=== PATIENT | female | born 1940 | race Caucasian/White ===

== ENCOUNTER 2017-03-08 18:36 | Emergency (ER) | payer MEDICARE ==
[2017-03-08 19:14] VITALS: BP 149/71
--- NOTE | 2017-03-08 20:04 | RAD ---
INDICATION: Left wrist pain after trauma COMPARISON: Similar radiograph dated June 13, 2016 TECHNIQUE: 3 views left wrist. REPORT: There is a minimally displaced and impacted fracture of the distal left radius. There is a nondisplaced fracture at the left ulnar styloid. There is widening of the scapholunate joint measuring 4 mm that was not seen on the previous radiograph. There is also a lucent line at the waist of the scaphoid potentially representing a nondisplaced fracture. Remaining visualized bones are intact. IMPRESSION: 1. Impacted fracture of the distal left radius and nondisplaced fracture of the left ulnar styloid. 2. Potential nondisplaced fracture through the waist of the scaphoid. 3. Widening of the scapholunate joint space indicates rupture of the scapholunate ligament.
--- NOTE | 2017-03-08 22:38 | UC ---
Rhona Kevin Alfonso, scribed for Matteo Youssef MD on 03/08/17 at 1949 . Head Injury HPI - HPI Summary HPI Summary: This patient is a 76 year old F presenting to [facility] accompanied by family with a chief complaint of a left wrist injury which occurred two hours EDITOR. She reports slipping down 3 steps. Pt rates the throbbing pain 8/10 in severity. Symptoms aggravated and alleviated by nothing. Pt took Advil EDITOR. Pt denies neck pain and head trauma. Pt medications reviewed this visit. - History Of Current Complaint Chief Complaint: UCTrauma Stated Complaint: WRIST INJURY Time Seen by Provider: 03/08/17 19:33 Hx Obtained From: Patient Mechanism Of Injury: Fall Onset/Duration: Sudden Onset, Lasting Hours - 2, Still Present Severity Currently: Moderate Severity Initially: Moderate Pain Intensity: 8 Pain Scale Used: 0-10 Numeric Character: Throbbing Aggravating Factor(s): Nothing Alleviating Factor(s): Nothing Associated Signs And Symptoms: Positive: Other - Negative head trauma. Negative : Neck Pain - Allergies/Home Medications Allergies/Adverse Reactions: Allergies Allergy/AdvReac Type Severity Reaction Status Date / Time Doxycycline Allergy Unknown Verified 03/08/17 19:08 Reaction Details Erythromycin Allergy Unknown Verified 03/08/17 19:08 Reaction Details Fluoxetine [From Prozac] Allergy Unknown Verified 03/08/17 19:08 Reaction Details Sertraline [From Zoloft] Allergy Unknown Verified 03/08/17 19:08 Reaction Details Sulfa Antibiotics Allergy Unknown Verified 03/08/17 19:07 Reaction Details PENLAC Allergy Intermediate Itching Uncoded 03/08/17 19:07 PMH/Surg Hx/FS Hx/Imm Hx - Surgical History Surgical History: Yes Surgery Procedure, Year, and Place: 2000 ORIF LEFT HIP [facility]-REMOVED SCREW SEVERAL YEARS LATER. 2007 BILATERAL CATARACTS [place]. Tonsilectomy - Family History Known Family History: Negative: Other - JOINT LAXITY - Social History Alcohol Use: None Alcohol Amount: 1-2 DRINKS/WEEK Substance Use Type: None Smoking Status (MU): Never Smoked Tobacco Have You Smoked in the Last Year: No Review of Systems Constitutional: Other - Negative fever Musculoskeletal: Other: - Positive Left wrist pain; negative neck pain Neurological: Other - Negative head trauma All Other Systems Reviewed And Are Negative: Yes Physical Exam Triage Information Reviewed: Yes Appearance: Well-Appearing, No Pain Distress Vital Signs: Initial Vital Signs Temp 99.8 F 03/08/17 19:08 Pulse 61 03/08/17 19:08 Resp 16 03/08/17 19:08 BP 149/71 03/08/17 19:08 Pulse Ox 98 03/08/17 19:08 Vital Signs Reviewed: Yes Eyes: Positive: Other: - EOMI, ELDER ENT: Positive: Normal ENT inspection Neck: Positive: Supple, Nontender Respiratory: Positive: Chest non-tender, Lungs clear Cardiovascular: Positive: RRR Abdomen Description: Positive: Nontender, Soft Bowel Sounds: Positive: Present Musculoskeletal: Positive: Other: - Swelling in left wrist. Tender to palpation. Good capillary refills and pulse. Neurological: Positive: Alert Psychological: Positive: Age Appropriate Behavior Skin Exam: Normal Procedures - Splinting Location: Left wrist Hand-Made Type: fiberglass Splint: thumb spica Diagnostics - Radiology Wrist X-Ray Radiology Interpretation Completed By: Radiologist - Pending Head Injury Course/Dx - Course Course Of Treatment: PLACED IN THUMB SPICA SPLINT. DISCUSSED WITH DR RAMIREZ. PATIENT TO F/U WITH HIM ON 03/12/17. - Differential Dx/Diagnosis Provider Diagnoses: LEFT WRIST AND SCAPHOID FRACTURE - Physician Notification/Consults Discussed Patient Care With: Kervin Ramirez Time Discussed With Above Provider: 19:44 Instructed by Provider To: Other - Consulted Dr. Ramirez (orthopedics) who recommended applying a splint and having pt follow up at their office. Consulted Dr. Ramirez (orthopedics) again at 2004 who said to call back on Saturday to have the patient schedule a follow up for Saturday. Discharge - Discharge Plan Condition: Stable Disposition: HOME Patient Education Materials: Wrist Fracture in Adults (ED), Splint Care (ED), Scaphoid Fracture (ED) Referrals: [facility] [Outside] Radha Cordon MD [Primary Care Provider] - Kervin Ramirez MD [Medical Doctor] - Additional Instructions: FOLLOW UP WITH ORTHOPEDICS, DR RAMIREZ. CALL HIS OFFICE 03/11/17, TO ARRANGE FOR AN APPOINTMENT WITH HIM ON 03/12/17. RETURN TO THE EMERGENCY DEPARTMENT FOR ANY WORSENING OF YOUR CONDITION OR QUESTIONS OR CONCERNS. The documentation as recorded by the Rhona recinos Alfonso accurately reflects the service I personally performed and the decisions made by me, Matteo Youssef MD.
== END 2017-03-08 20:51 | disposition home or self-care (01) ==
LOC: UCEAST 18:36
DX: S52.502A Unspecified fracture of the lower end of left radius, initial encounter for closed fracture (principal); S52.612A Displaced fracture of left ulna styloid process, initial encounter for closed fracture; S62.002A Unspecified fracture of navicular [scaphoid] bone of left wrist, initial encounter for closed fracture; W10.9XXA Fall (on) (from) unspecified stairs and steps, initial encounter; Y93.9 Activity, unspecified; Y92.9 Unspecified place or not applicable; Y99.9 Unspecified external cause status
CPT/HCPCS: 99212; G0463

== ENCOUNTER 2017-03-18 10:45 | Day surgery (SDC) | payer MEDICARE ==
[~2017-03-18 10:45] MED LIST: Buffered Lidocaine 0.9% SYRIN* 5 ML/SYR SYRINGE INTRADERM ONE; Buffered Lidocaine 0.9% SYRIN* 5 ML/SYR SYRINGE ONE; Cyclopentolate 1% OPTH.SOL* 2 ML BTL ONE; Famotidine IV* 10 MG/ML 2 ML (20 mg) IV ONE; Flurbiprofen 0.03% OPTH.SOL* 2.5 ML BTL ONE; Lidocaine 1% MPF* 2 ML VIAL ONE; Neomycin/Polymy/Dex OPHTH.OIN* 3.5 GM ONE; Phenylephrine 2.5% OPTH.SOL* 2 ML BTL ONE; Povidone Iodine 5% OPTH* 30 ML BTL ONE; Tetracaine 0.5% OPTH.SOL 4 ML* 1 DROP BTL ONE; Tropicamide 1% OPTH.SOL* BTL ONE; acetaZOLAMIDE TAB* 250 MG ONE
[2017-03-18] MEDS ORDERED: Famotidine IV* 10 MG/ML 2 ML (20 mg) ONE (10:46)
[2017-03-18] MEDS ORDERED: Buffered Lidocaine 0.9% SYRIN* 5 ML/SYR SYRINGE ONE (10:46)
[2017-03-18] MEDS ORDERED: ceFAZolin 2 GM PREMIX(*) 2 GM/50 ML BAG IVPB ONE (10:59)
[2017-03-18] MEDS ORDERED: KETAMINE HCL* 50 MG/ML 10 ML VIAL ONE (11:49)
[2017-03-18] MEDS ORDERED: fentaNYL* 50 MCG/ML 2 ML VIAL (100 MCG VIAL) ONE (11:49)
[2017-03-18] MEDS ORDERED: Lidocaine 2% PF * 5 ML VIAL ONE (11:50)
[2017-03-18] MEDS ORDERED: Propofol* 10 MG/ML 20 ML BTL IV PUSH ONE (11:50)
[2017-03-18] MEDS ORDERED: Ketorolac INJ* 30 MG/ML 1 ML VIAL ONE (11:50)
[2017-03-18] MEDS ORDERED: Midazolam* 1 MG/ML 5 ML VIAL (5 MG) ONE (11:50)
[2017-03-18] MEDS ORDERED: Ondansetron INJ* 2 MG/ML VIAL ONE (11:50)
[2017-03-18] MEDS ORDERED: Dexamethasone IV* 4 MG/ML 1 ML (4 MG) ONE (11:50)
[2017-03-18] MEDS ORDERED: Bupivacaine 0.25% SDV* 30 ML ONE (12:36)
[2017-03-18] MEDS ORDERED: DiMENhydriNATE IV* 50 MG/ML VIAL IV PUSH PRN (13:53)
[2017-03-18] MEDS ORDERED: Acetaminophen TAB* 325 MG PO PRN (13:53)
[2017-03-18] MEDS ORDERED: HYDROmorphone* 1 MG/ML 1 ML SYR IV PRN (13:53)
[2017-03-18] MEDS ORDERED: oxyCODONE TAB* 5 MG TAB PO PRN (13:53)
[2017-03-18 16:55] VITALS: BP 124/60
--- NOTE | 2017-03-19 09:17 | OP ---
DATE OF OPERATION: 03/18/17 - [facility] DATE OF : 40 SURGEON: Kervin Peck MD LABORATORY INSPECTOR: ZACARIAS Ba. An geriatric assistant was needed for the entirety of the procedure to help with positioning and reduction and instrumentation. ANESTHESIOLOGIST: Dr. Holland. ANESTHESIA: General. PRE-OP DIAGNOSIS: Left intra-articular, two fragment distal radius fracture. POST-OP DIAGNOSIS: Left intra-articular, two fragment distal radius fracture. OPERATIVE PROCEDURE: Open reduction internal fixation, left intra-articular distal radius fracture. IMPLANTS: Synthes distal radius plates and screws. INDICATIONS: Jeny is a very pleasant 76-year-old female who had a fall and had a very displaced and significantly impacted and shortened distal radius fracture. There was a dorsal ulnar fragment that was mildly displaced. There was also some concern for scaphoid fracture. Preoperative CT scan showed no obvious scaphoid fracture and just a couple of millimeters of displacement between the dorsal ulnar piece and the rest of the articular surface. I talked to Jeny about realigning the bone into a better position. I told there was a possibility that I may have to put on the dorsal plate and as well as the volar plate. She understood this. She elected to proceed with surgery. ESTIMATED BLOOD LOSS: 10 mL. COMPLICATIONS: None. FINDINGS: There was a significant longitudinal split through the proximal shaft fragment necessitating one radial to ulnar lag screw. DESCRIPTION OF PROCEDURE: Jeny was seen in the preoperative holding area. The correct site, side, and procedure were identified. We came back to the operating room where anesthesia was induced. The arm was prepped and draped in the usual fashion. A formal time-out was performed. I began by making a standard longitudinal incision over the distal FCR tendon. Dissection was carried down and the crossing veins were cauterized. The sheath was opened. The tendon was retracted ulnarly and then the subsheath was incised longitudinally. Blunt dissection was used to develop the interval between the radial artery and the FCR and FPL tendons. These were retracted ulnarly. There was couple of perforators that were cauterized. I then released the pronator quadratus off the radial margin of the radius and reflected this subperiosteally ulnarly. The distal 2 or 3 mm of volar capsule was retained distally. I then mobilized the fragments and cleaned out some soft callous. I then mobilized the distal fragment over to the proximal fragment. This was pulled out to length and one 0.062 K-wire was placed through the radial styloid to provisionally hold the fracture in decent position. I then brought in my plate and fixed it distally. Initially, this was a standard 3-hole narrow plate. The plate was then brought down to the proximal cortical bone. I was having trouble reducing the fracture with regards to radial and ulnar translation, so I examined the fracture and there was a longitudinal split going down the proximal shaft fragment. I therefore placed one 2.7 mm countersunk lag screw from radial to ulnar to secure the split and to keep the split from propagating any further. I decided to switch out the plate to a longer 4-hole plate. This was fixed through the same screw holes that I had previously used to fix the 3-hole plate distally. The same locking screws were used. I then brought the longer plate down to the shaft. With the shaft now held together nicely by the lag screw, it reduced very easily. I then placed two 2.4 locking screws through the proximal two most holes. A third 2.4 mm locking screw was placed through the most distal shaft hole. The other oblong hole was left without a screw as the bone was very soft and it was very close to the lag screw and I would risk cracking the bone. I then took some fluoroscopic imaging with the plate in place. The alignment looked very nice. I was happy with the instrumentation. I decided to add on one more radial styloid screw just proximal to the other styloid screw as I had pretty good bone over that piece. This was placed in standard fashion. I then irrigated out the wound. I reapproximated the pronator quadratus with 3-0 Polysorb. The subcutaneous tissue was reapproximated with 3-0 Polysorb. I had checked the alignment extensively fluoroscopically and ultimately I decided that there would not be much value in adding a dorsal plate as it looked like that dorsal ulnar fragment and followed the rest of the pieces very nicely and it was certainly inadequate alignment. I did not want to devascularize the distal radius any more, so I decided to go with just a volar plate. Everything was holding very nicely now. Her bone was very, very soft. I infiltrated the operative area with 0.25% plain Marcaine. I dressed the wound with Xeroform, 4x4's, and then dorsal and volar plaster slab splint was applied to fully immobilize the wrist. I had checked the fluoroscopy throughout the case. I do not really see any evidence of significant scaphoid fracture, so I do not really think there was much to do there. Certainly, she has scapholunate diastasis but given her age and general health, I do not think that that warranted any further intervention. I think that getting the radius in nice alignment was adequate, so I went ahead and deflated the tourniquet. The hand pinked up immediately. I had exsanguinated the arm with the Esmarch and inflated the tourniquet to 250 mmHg prior to making skin incision. After tourniquet was deflated and the splint was nicely in place, she was woken back up and taken to the recovery room in stable condition. [id number]/CPS #: [id number] MTDD
--- NOTE | 2017-03-19 12:27 | RAD ---
INDICATION: Wrist fracture, trauma COMPARISONS: March 08, 2017 TECHNIQUE: Fluoroscopy was provided for a surgical procedure. Total fluoroscopy time is: 1 minute, 22 seconds FINDINGS: Spot images demonstrate internal fixation of the distal radius IMPRESSION: FLUOROSCOPY WAS PROVIDED FOR A SURGICAL PROCEDURE CPT II Codes: 6045F
== END 2017-03-18 16:46 | disposition home or self-care (01) ==
LOC: OREAST 10:45
PROVIDERS: ATTEND Orthopaedic Surgery Hand Surgery
DX: S52.572A Other intraarticular fracture of lower end of left radius, initial encounter for closed fracture (principal); W01.0XXA Fall on same level from slipping, tripping and stumbling without subsequent striking against object, initial encounter; Y92.9 Unspecified place or not applicable
CPT/HCPCS: 76000; A9270-GY; C1713; C1776; J0690; J1100; J1885; J2250; J2405; J2704; J3010